=== PATIENT | female | born 1975 | race Caucasian/White ===

== ENCOUNTER → 2022-05-22 | Outpatient (CLI) | payer MEDICARE, OTHER ==
--- NOTE | 2022-05-22 12:59 | US ---
EXAMINATION TYPE: US pelvic complete DATE OF EXAM: 05/22/2022 COMPARISON: NONE CLINICAL HISTORY: N92.1 EXCESSIVE AND FREQUENT MENSTRUATION WITH IRR. Menorrhagia with irregular cycl es. Patient has a copper IUD in place. . TECHNIQUE: Transabdominal (TA). Transabdominal sonographic images of the pelvis were acquired. Tra nsvaginal sonographic images were offered to patient. Patient refusing transvaginal exam. Date of LMP: 05/20/2022 EXAM MEASUREMENTS: Uterus: 10.9 x 6.2 x 4.2 cm Endometrial Stripe: 0.46 cm Right Ovary: 4.2 x 2.1 x 1.8 cm Left Ovary: 4.5 x 3.0 x 2.8 cm 1. Uterus: Anteverted IUD appears to be in upper endometrium, slightly limited visibility of IUD d ue to body habitus. 2. Endometrium: Measures 0.46 cm. 3. Right Ovary: Anechoic areas seen, largest: 1.2 x 1.2 x 1.1 cm. 4. Left Ovary: Anechoic area seen: 3.1 x 2.4 x 1.8 cm. 5. Bilateral Adnexa: Appear wnl 6. Posterior cul-de-sac: Appears wnl IMPRESSION: 1. No evidence for acute process. 2. IUD within the endometrium. 3. Appropriate color Doppler flow to the ovaries. 4.
== END | disposition home or self-care (01) ==
LOC: RADUSWWP 12:12
PROVIDERS: ATTEND Obstetrics & Gynecology
DX: N92.1 Excessive and frequent menstruation with irregular cycle (principal); Z97.5 Presence of (intrauterine) contraceptive device
CPT/HCPCS: 76856